=== PATIENT | male | born 1995 | race Caucasian/White ===

== ENCOUNTER 2018-10-18 12:39 | Emergency (ER) | payer OTHER | END 2018-10-18 14:14 | disposition home or self-care (01) | LOC: FER 12:39 ==

== ENCOUNTER 2018-12-12 20:24 | Emergency (ER) | payer OTHER ==
[2018-12-12 20:35] VITALS: BP 146/85; PULSE 62; TEMP 98.3; BMI 28.8
--- NOTE | 2018-12-13 01:28 | PDOC ---
Documentation entered by Carole Butt SCRIBE, acting as scribe for Andrea Covarrubias MD. Andrea Covarrubias MD: This documentation has been prepared by the Filomena ward Mackenzie, SCRIBE, under my direction and personally reviewed by me in its entirety. I confirm that the documentation accurately reflects all work , treatment, procedures, and medical decision making performed by me. History of Present Illness - General Chief Complaint: Injury Stated Complaint: INJURY TO LEFT ELBOW - History of Present Illness Initial Comments: The patient is a 23 year old male, with no significant PMH who presents to the emergency department with a left elbow injury sustained 3 days ago. Patient states 3 days ago he was playing soccer when he landed on his left elbow awkwardly. Since then he has had minor difficulty moving it and has noticed some swelling. Patient states the pain is minor and not of a severity requiring him to take any tylenol or advil. Patient notes he has been wearing a brace for the past few days which has helped to keep the elbow in place preventing any uncomfortable movement. The patient denies chest pain, shortness of breath, headache and dizziness. Denies fever, chills, nausea, vomiting, diarrhea and constipation. Denies dysuria, frequency, urgency and hematuria. Allergies: NKA Medications: Humira 12/12/18 21:01 Past History - Past Medical History Allergies/Adverse Reactions: Allergies Allergy/AdvReac Type Severity Reaction Status Date / Time No Known Allergies Allergy Verified 12/12/18 20:25 Home Medications: Ambulatory Orders Adalimumab [Humira] 10 mg SQ ASDIR 10/18/18 COPD: No - Suicide/Smoking/Psychosocial Hx Smoking History: Never smoked Hx Alcohol Use: Yes Drug/Substance Use Hx: No Review of Systems - Review of Systems Comments:: GENERAL/CONSTITUTIONAL: No fever or chills. No weakness. HEAD, EYES, EARS, NOSE AND THROAT: No change in vision. No ear pain or discharge. No sore throat. CARDIOVASCULAR: No chest pain or shortness of breath. RESPIRATORY: No cough, wheezing, or hemoptysis. GASTROINTESTINAL: No nausea, vomiting, diarrhea or constipation. GENITOURINARY: No dysuria, frequency, or change in urination. MUSCULOSKELETAL: (+)Left elbow swelling and minor pain. No neck or back pain. SKIN: No rash NEUROLOGIC: No headache, vertigo, loss of consciousness, or change in strength/ sensation. ENDOCRINE: No increased thirst. No abnormal weight change. HEMATOLOGIC/LYMPHATIC: No anemia, easy bleeding, or history of blood clots. ALLERGIC/IMMUNOLOGIC: No hives or skin allergy. 12/12/18 21:00 *Physical Exam - Vital Signs Last Vital Signs Temp Pulse Resp BP Pulse Ox 98.3 F 62 16 146/85 99 12/12/18 20:28 12/12/18 20:28 12/12/18 20:28 12/12/18 20:28 12/12/18 20:28 - Physical Exam Comments: GENERAL: Awake, alert, and fully oriented, in no acute distress HEAD: No signs of trauma EYES: PERRLA, EOMI, sclera anicteric, conjunctiva clear ENT: Auricles normal inspection, hearing grossly normal, nares patent, oropharynx clear without exudates. Moist mucosa NECK: Normal ROM, supple, no lymphadenopathy, JVD, or masses LUNGS: Breath sounds equal, clear to auscultation bilaterally. No wheezes, and no crackles HEART: Regular rate and rhythm, normal S1 and S2, no murmurs, rubs or gallops ABDOMEN: Soft, nontender, normoactive bowel sounds. No guarding, no rebound. No masses EXTREMITIES: (+)Lateral joint line tenderness at left elbow joint. Normal range of motion, no edema. No clubbing or cyanosis. No cords, or erythema. NEUROLOGICAL: Cranial nerves II through XII grossly intact. Normal speech, normal gait SKIN: Warm, Dry, normal turgor, no rashes or lesions noted. 12/12/18 21:01 ED Treatment Course - RADIOLOGY Radiology Studies Ordered: Category Date Time Status ELBOW-LEFT [RAD] Stat Radiology 12/12/18 20:52 Taken Medical Decision Making - Medical Decision Making 12/13/18 01:27 plain films -, as read by me, referred to radiology for definitive review msk pain without fx analgesia sling *DC/Admit/Observation/Transfer Diagnosis at time of Disposition: Elbow sprain Qualifiers: Encounter type: initial encounter Laterality: left Qualified Code(s): S53.402A - Unspecified sprain of left elbow, initial encounter - Discharge Dispostion Disposition: HOME Condition at time of disposition: Stable - Referrals - Patient Instructions Printed Discharge Instructions: How to Use a Sling Additional Instructions: Follow up with your doctor for persistent pain - Post Discharge Activity
== END 2018-12-12 21:50 | disposition home or self-care (01) ==
LOC: FER 20:24
DX: S53.402A Unspecified sprain of left elbow, initial encounter (principal); X58.XXXA Exposure to other specified factors, initial encounter; Y93.66 Activity, soccer; Y92.322 Soccer field as the place of occurrence of the external cause
CPT/HCPCS: 73070-TC-LT-FY; 99281-25